=== PATIENT | male | born 1960 | race Caucasian/White ===

== ENCOUNTER 2018-08-24 13:00 | Outpatient (RCR) | payer MEDICAID | END 2018-08-24 13:30 | disposition home or self-care (01) | LOC: PT 13:00 | DX: M54.5 Low back pain (principal); G89.29 Other chronic pain; Z98.890 Other specified postprocedural states ==

== ENCOUNTER 2018-08-29 17:18 | Observation (INO) | payer MEDICAID ==
[~2018-08-29] VITALS: Ht 177.8 cm; Wt 107.1 kg
[2018-08-29 18:06] LABS: EOS # 0.3 (0.04-0.40); EOS % 4.2 % (0.0-4.0); HEMATOCRIT 47.8 % (42.0-52.0); HEMOGLOBIN 16.2 g/dL (13.5-18.0); LYMPH# 1.3 (1.50-4.00); MEAN CELL VOLUME 88 fl (78-100); MEAN CORPUSCULAR HEMOGLOBIN 30 pg (27-31); MEAN CORPUSCULAR HGB CONC 34 g/dL (33-37); MEAN PLATELET VOLUME 10.1 fl (7.4-10.4); MONO # 0.4 (0.20-0.80); NEU # 4.2 (1.40-6.50); PLATELET COUNT 189 K/mm3 (130-400); RED BLOOD COUNT 5.41 M/mm3 (4.20-5.60); RED CELL DISTRIBUTION WIDTH 13.3 % (11.5-14.5); WHITE BLOOD COUNT 6.2 K/mm3 (4.8-10.8)
[2018-08-29] MEDS ORDERED: PRINIVIL5 M1 PO (18:13)
[2018-08-29] MEDS ORDERED: ROPINIROLE HCL1 MG PO (18:13)
[2018-08-29] MEDS ORDERED: FENOFIBRATE145 MG PO (18:13)
[2018-08-29] MEDS ORDERED: CARBIDOPA/LEVOD1 TA2 PO (18:14)
[2018-08-29] MEDS ORDERED: ROSUVASTATIN CA10 MG PO (18:14)
[2018-08-29] MEDS ORDERED: CLOPIDOGREL75 M2 PO (18:14)
[2018-08-29] MEDS ORDERED: PANTOPRAZOLE SO40 MG PO (18:15)
[2018-08-29] MEDS ORDERED: FUROSEMIDE20 MG PO (18:15)
[2018-08-29] MEDS ORDERED: ASPIR LOW81 MG PO (18:15)
[2018-08-29] MEDS ORDERED: OMEGA-3-ACID ETH1 GM PO (18:16)
[2018-08-29 18:17] LABS: PARTIAL THROMBOPLASTIN TIME 23.7 SECONDS (21.0-32.0); PROTHROMBIN TIME 10.9 SECONDS (9.0-12.0)
[2018-08-29] MEDS ORDERED: QUETIAPINE FUMA25 M3 PO (18:17)
[2018-08-29] MEDS ORDERED: QUETIAPINE FUM200 M1 PO (18:18)
[2018-08-29] MEDS ORDERED: REMERON15 MG PO (18:18)
[2018-08-29 18:19] LABS: ALBUMIN 4.1 g/dL (3.5-5.0); CALCIUM 9.1 mg/dL (8.4-10.2); POTASSIUM 3.9 mmol/L (3.6-5.0); TOTAL BILIRUBIN 0.6 mg/dL (0.2-1.3); TOTAL PROTEIN 7.7 g/dL (6.3-8.2)
[2018-08-29] MEDS ORDERED: ISOSORBIDE30 MG PO (18:19)
[2018-08-29] MEDS ORDERED: METOPROLOL TAR100 M1 PO (18:19)
[2018-08-29] MEDS ORDERED: PERCOCET 325 MG1 TAB PO (18:20)
[2018-08-29 18:22] LABS: CKMB ISOENZYME 1.2 ng/mL (0.6-3.5)
[2018-08-29 18:32] LABS: TROPONIN-I < 0.03 ng/mL (0.00-0.06)
[2018-08-29 22:23] VITALS: BP 147/89
[2018-08-29 22:31] VITALS: BP 147/89
[2018-08-30 00:56] LABS: URINE APPEARANCE CLEAR; URINE COLOR YELLOW; URINE PROTEIN(semi-quant) NEGATIVE (NEGATIVE)
[2018-08-30 00:57] LABS: URINE BILIRUBIN NEGATIVE (NEGATIVE); URINE BLOOD NEGATIVE (NEGATIVE); URINE KETONE NEGATIVE (NEGATIVE); URINE LEUKOCYTE ESTERASE NEGATIVE (NEGATIVE); URINE NITRATE NEGATIVE (NEGATIVE); URINE UROBILINOGEN NORMAL (NORMAL); URINE WBC 0-1 /hpf (0-3)
[2018-08-30 02:50] VITALS: BP 134/68
[2018-08-30 05:26] LABS: URINE GLUCOSE 50 mg/dL mg/dL (NEGATIVE)
[2018-08-30 06:31] VITALS: BP 133/74
[2018-08-30 07:02] LABS: EOS # 0.2 (0.04-0.40); EOS % 4.7 % (0.0-4.0); HEMATOCRIT 45.4 % (42.0-52.0); HEMOGLOBIN 15.2 g/dL (13.5-18.0); LYMPH# 1.6 (1.50-4.00); MEAN CELL VOLUME 89 fl (78-100); MEAN CORPUSCULAR HEMOGLOBIN 30 pg (27-31); MEAN CORPUSCULAR HGB CONC 34 g/dL (33-37); MEAN PLATELET VOLUME 9.7 fl (7.4-10.4); MONO # 0.4 (0.20-0.80); NEU # 2.6 (1.40-6.50); PLATELET COUNT 171 K/mm3 (130-400); RED CELL DISTRIBUTION WIDTH 13.4 % (11.5-14.5); WHITE BLOOD COUNT 4.9 K/mm3 (4.8-10.8)
[2018-08-30 07:20] LABS: ALBUMIN 3.8 g/dL (3.5-5.0); POTASSIUM 3.8 mmol/L (3.6-5.0); TOTAL BILIRUBIN 0.7 mg/dL (0.2-1.3); TOTAL PROTEIN 7.3 g/dL (6.3-8.2)
[2018-08-30 09:05] LABS: D-DIMER 0.61 mg/L FEU (0.15-0.50)
[2018-08-30 11:24] VITALS: BP 116/70
[2018-08-30 14:17] VITALS: BP 124/74
== END 2018-08-30 14:46 | disposition home or self-care (01) ==
LOC: ED 17:18 → MED/SURG 20:43
PROVIDERS: Physician Assistant; ADMIT Nurse Practitioner Family
DX: R07.9 Chest pain, unspecified (principal); I25.118 Atherosclerotic heart disease of native coronary artery with other forms of angina pectoris; I10 Essential (primary) hypertension; Z95.5 Presence of coronary angioplasty implant and graft; I42.9 Cardiomyopathy, unspecified; Z86.73 Personal history of transient ischemic attack (TIA), and cerebral infarction without residual deficits; E78.5 Hyperlipidemia, unspecified; R73.03 Prediabetes; R73.9 Hyperglycemia, unspecified; G20 Parkinson's disease; G47.30 Sleep apnea, unspecified; Z95.1 Presence of aortocoronary bypass graft; Z95.820 Peripheral vascular angioplasty status with implants and grafts; Z87.19 Personal history of other diseases of the digestive system; Z91.5 Personal history of self-harm; G89.29 Other chronic pain; Z95.0 Presence of cardiac pacemaker; Z79.899 Other long term (current) drug therapy; Z79.82 Long term (current) use of aspirin; Z79.02 Long term (current) use of antithrombotics/antiplatelets; F17.210 Nicotine dependence, cigarettes, uncomplicated; Z98.1 Arthrodesis status
CPT/HCPCS: G0378; J2270; J7030; Q9967

== ENCOUNTER 2019-01-05 04:42 | Emergency (ER) | payer MEDICAID ==
[~2019-01-05 04:42] MED LIST: ASPIR LOW81 MG PO; CARBIDOPA/LEVOD1 TA2 PO; CLOPIDOGREL75 M2 PO; FENOFIBRATE145 MG PO; FUROSEMIDE20 MG PO; ISOSORBIDE30 MG PO; METOPROLOL TAR100 M1 PO; OMEGA-3-ACID ETH1 GM PO; PANTOPRAZOLE SO40 MG PO; PERCOCET 325 MG1 TAB PO; PRINIVIL5 M1 PO; QUETIAPINE FUM200 M1 PO; QUETIAPINE FUMA25 M3 PO; REMERON15 MG PO; ROPINIROLE HCL1 MG PO; ROSUVASTATIN CA10 MG PO
[2019-01-05 05:39] LABS: EOS # 0.4 (0.04-0.40); HEMATOCRIT 47.6 % (42.0-52.0); HEMOGLOBIN 15.6 g/dL (13.5-18.0); LYMPH# 1.4 (1.50-4.00); MEAN CELL VOLUME 89 fl (78-100); MEAN CORPUSCULAR HEMOGLOBIN 29 pg (27-31); MEAN CORPUSCULAR HGB CONC 33 g/dL (33-37); MEAN PLATELET VOLUME 10.1 fl (7.4-10.4); MONO # 0.5 (0.20-0.80); NEU # 3.7 (1.40-6.50); PLATELET COUNT 207 K/mm3 (130-400); RED BLOOD COUNT 5.38 M/mm3 (4.20-5.60); RED CELL DISTRIBUTION WIDTH 13.5 % (11.5-14.5); WHITE BLOOD COUNT 6.1 K/mm3 (4.8-10.8)
[2019-01-05 05:40] LABS: ALBUMIN 4.5 g/dL (3.5-5.0); CALCIUM 10.1 mg/dL (8.4-10.2); POTASSIUM 3.8 mmol/L (3.6-5.0); TOTAL BILIRUBIN 0.6 mg/dL (0.2-1.3); TOTAL PROTEIN 8.4 g/dL (6.3-8.2)
[2019-01-05 05:45] LABS: EOS % 6.4 % (0.0-4.0)
[2019-01-05 05:48] LABS: TROPONIN-I < 0.03 ng/mL (0.00-0.06)
[2019-01-05] MEDS ORDERED: LISINOPRIL40 MG PO (05:48)
[2019-01-05] MEDS ORDERED: METOPROLOL SUC200 M1 PO (05:48)
[2019-01-05] MEDS ORDERED: METFORMIN HYD1000 MG PO (05:50)
[2019-01-05] MEDS ORDERED: NITROGLYCERIN0.4 M1 SL (05:50)
[2019-01-05 05:51] LABS: CKMB ISOENZYME 1.7 ng/mL (0.6-3.5)
[2019-01-05] MEDS ORDERED: RANOLAZINE ER500 MG PO (05:51)
[2019-01-05 06:36] LABS: PARTIAL THROMBOPLASTIN TIME 25.2 SECONDS (21.0-32.0)
[2019-01-05 06:37] LABS: D-DIMER 0.6 mg/L FEU (0.15-0.50)
[2019-01-05 08:46] LABS: TROPONIN-I < 0.03 ng/mL (0.00-0.06)
[2019-01-05] MEDS ORDERED: MS CONTIN15 MG PO (11:58)
[2019-01-05 12:20] VITALS: BP 148/87
== END 2019-01-05 12:20 | disposition home or self-care (01) ==
LOC: ED 04:42
PROVIDERS: Nurse Practitioner Family
DX: R07.9 Chest pain, unspecified (principal); R06.02 Shortness of breath; I10 Essential (primary) hypertension; E11.9 Type 2 diabetes mellitus without complications; E78.5 Hyperlipidemia, unspecified; F32.9 Major depressive disorder, single episode, unspecified; G20 Parkinson's disease; G47.33 Obstructive sleep apnea (adult) (pediatric); F17.210 Nicotine dependence, cigarettes, uncomplicated; G40.909 Epilepsy, unspecified, not intractable, without status epilepticus; Z79.82 Long term (current) use of aspirin; Z79.02 Long term (current) use of antithrombotics/antiplatelets; Z79.84 Long term (current) use of oral hypoglycemic drugs; Z95.0 Presence of cardiac pacemaker; Z90.49 Acquired absence of other specified parts of digestive tract
CPT/HCPCS: J2270; J2405; J7030

== ENCOUNTER → 2019-01-19 | Outpatient (CLI) | payer MEDICAID ==
[2019-01-05 12:20] VITALS: BP 148/87
[~2019-01-19] MED LIST changes: +LISINOPRIL40 MG PO; +METFORMIN HYD1000 MG PO; +METOPROLOL SUC200 M1 PO; +MS CONTIN15 MG PO; +NITROGLYCERIN0.4 M1 SL; +RANOLAZINE ER500 MG PO
[2019-01-19 14:21] LABS: ALBUMIN 4.8 g/dL (3.5-5.0); CALCIUM 10.2 mg/dL (8.4-10.2); POTASSIUM 3.9 mmol/L (3.6-5.0); TOTAL BILIRUBIN 0.5 mg/dL (0.2-1.3); TOTAL PROTEIN 8.8 g/dL (6.3-8.2)
[2019-01-19 14:46] LABS: D-DIMER 0.48 mg/L FEU (0.15-0.50)
== END ==
LOC: LAB 13:52
PROVIDERS: Family Medicine
DX: R77.9 Abnormality of plasma protein, unspecified (principal); R79.89 Other specified abnormal findings of blood chemistry

== ENCOUNTER 2019-01-27 17:58 | Emergency (ER) | payer MEDICAID ==
[~2019-01-27] VITALS: Wt 99.5 kg
[2019-01-27] MEDS ORDERED: AMOXICILLIN 50500 MG PO (18:08)
[2019-01-27] MEDS ORDERED: ACETAMINOPHEN-H1 TA2 PO (18:12)
[2019-01-27 18:44] LABS: EOS # 0.5 (0.04-0.40); HEMATOCRIT 42.6 % (42.0-52.0); HEMOGLOBIN 14.4 g/dL (13.5-18.0); LYMPH# 1.8 (1.50-4.00); MEAN CELL VOLUME 87 fl (78-100); MEAN CORPUSCULAR HEMOGLOBIN 30 pg (27-31); MEAN CORPUSCULAR HGB CONC 34 g/dL (33-37); MONO # 0.5 (0.20-0.80); NEU # 4.1 (1.40-6.50); PLATELET COUNT 195 K/mm3 (130-400); RED BLOOD COUNT 4.88 M/mm3 (4.20-5.60); WHITE BLOOD COUNT 6.8 K/mm3 (4.8-10.8)
[2019-01-27 18:55] LABS: ALBUMIN 4.4 g/dL (3.5-5.0); CALCIUM 9.6 mg/dL (8.4-10.2); TOTAL BILIRUBIN 0.4 mg/dL (0.2-1.3); TOTAL PROTEIN 8.2 g/dL (6.3-8.2)
[2019-01-27 18:57] LABS: EOS % 7.2 % (0.0-4.0)
[2019-01-27 19:08] LABS: POTASSIUM 2.9 mmol/L (3.6-5.0)
[2019-01-27 19:53] LABS: PH-URINE 5.5 (5.0 - 8.0); URINE APPEARANCE CLEAR; URINE BILIRUBIN NEGATIVE (NEGATIVE); URINE BLOOD NEGATIVE (NEGATIVE); URINE COLOR YELLOW; URINE GLUCOSE 50 mg/dL mg/dL (NEGATIVE); URINE KETONE NEGATIVE (NEGATIVE); URINE LEUKOCYTE ESTERASE NEGATIVE (NEGATIVE); URINE NITRATE NEGATIVE (NEGATIVE); URINE PROTEIN(semi-quant) NEGATIVE (NEGATIVE); URINE UROBILINOGEN NORMAL (NORMAL); URINE WBC 0-1 /hpf (0-3)
[2019-01-27] MEDS ORDERED: PERCOCET 325 MG1 TA2 PO (21:47)
[2019-01-27] MEDS ORDERED: POTASSIUM CHLO20 ME3 PO (21:47)
[2019-01-27 21:56] VITALS: BP 158/92
== END 2019-01-27 21:58 | disposition home or self-care (01) ==
LOC: ED 17:58
PROVIDERS: Family Medicine
DX: K92.2 Gastrointestinal hemorrhage, unspecified (principal); R10.9 Unspecified abdominal pain; N13.9 Obstructive and reflux uropathy, unspecified; G89.29 Other chronic pain; I25.10 Atherosclerotic heart disease of native coronary artery without angina pectoris; I10 Essential (primary) hypertension; E78.5 Hyperlipidemia, unspecified; G20 Parkinson's disease; F17.210 Nicotine dependence, cigarettes, uncomplicated; G40.909 Epilepsy, unspecified, not intractable, without status epilepticus; Z79.82 Long term (current) use of aspirin; Z79.02 Long term (current) use of antithrombotics/antiplatelets; Z91.19 Patient's noncompliance with other medical treatment and regimen; Z86.73 Personal history of transient ischemic attack (TIA), and cerebral infarction without residual deficits; Z95.0 Presence of cardiac pacemaker
CPT/HCPCS: J0595; J3480; J7030; Q9967

== ENCOUNTER → 2019-02-05 | Outpatient (CLI) | payer MEDICAID ==
[2019-01-27 21:56] VITALS: BP 158/92
[~2019-02-05] MED LIST changes: +ACETAMINOPHEN-H1 TA2 PO; +AMOXICILLIN 50500 MG PO; +PERCOCET 325 MG1 TA2 PO; +POTASSIUM CHLO20 ME3 PO
[2019-02-05 10:31] LABS: EOS # 0.4 (0.04-0.40); HEMATOCRIT 50.3 % (42.0-52.0); HEMOGLOBIN 16.6 g/dL (13.5-18.0); LYMPH# 1.7 (1.50-4.00); MEAN CELL VOLUME 87 fl (78-100); MEAN CORPUSCULAR HEMOGLOBIN 29 pg (27-31); MEAN CORPUSCULAR HGB CONC 33 g/dL (33-37); MEAN PLATELET VOLUME 9.6 fl (7.4-10.4); MONO # 0.4 (0.20-0.80); NEU # 4.5 (1.40-6.50); PLATELET COUNT 198 K/mm3 (130-400); RED BLOOD COUNT 5.77 M/mm3 (4.20-5.60); RED CELL DISTRIBUTION WIDTH 13.4 % (11.5-14.5); WHITE BLOOD COUNT 7.2 K/mm3 (4.8-10.8)
[2019-02-05 10:41] LABS: EOS % 6.1 % (0.0-4.0)
[2019-02-05 10:51] LABS: ALBUMIN 4.9 g/dL (3.5-5.0); CALCIUM 10.5 mg/dL (8.4-10.2); TOTAL BILIRUBIN 0.7 mg/dL (0.2-1.3); TOTAL PROTEIN 9.3 g/dL (6.3-8.2)
[2019-02-05 11:04] LABS: PH-URINE 6.5 (5.0 - 8.0); URINE APPEARANCE CLEAR; URINE BILIRUBIN NEGATIVE (NEGATIVE); URINE BLOOD NEGATIVE (NEGATIVE); URINE COLOR YELLOW; URINE GLUCOSE NEGATIVE (NEGATIVE); URINE KETONE NEGATIVE (NEGATIVE); URINE LEUKOCYTE ESTERASE NEGATIVE (NEGATIVE); URINE NITRATE NEGATIVE (NEGATIVE); URINE PROTEIN(semi-quant) TRACE mg/dL (NEGATIVE); URINE UROBILINOGEN NORMAL (NORMAL); URINE WBC 0-1 /hpf (0-3)
[2019-02-05 11:46] LABS: ERYTHROCYTE SEDIMENTATION RATE 8 mm/hr (0-20)
[2019-02-05 22:28] LABS: TESTOSTERONE 631 ng/dL (221-716)
== END ==
LOC: LAB 09:38
PROVIDERS: Internal Medicine
DX: Z12.5 Encounter for screening for malignant neoplasm of prostate (principal); Z12.11 Encounter for screening for malignant neoplasm of colon; E11.9 Type 2 diabetes mellitus without complications; I25.10 Atherosclerotic heart disease of native coronary artery without angina pectoris

== ENCOUNTER → 2019-04-16 | Outpatient (CLI) | payer MEDICAID ==
[2019-04-16 11:54] LABS: BASO # 0.1 (0.02-0.10); EOS # 0.5 (0.04-0.40); HEMATOCRIT 46.4 % (42.0-52.0); HEMOGLOBIN 15.5 g/dL (13.5-18.0); LYMPH# 1.9 (1.50-4.00); MEAN CELL VOLUME 86 fl (78-100); MEAN CORPUSCULAR HEMOGLOBIN 29 pg (27-31); MEAN CORPUSCULAR HGB CONC 33 g/dL (33-37); MEAN PLATELET VOLUME 9.6 fl (7.4-10.4); MONO # 0.7 (0.20-0.80); NEU # 4.9 (1.40-6.50); PLATELET COUNT 249 K/mm3 (130-400); RED BLOOD COUNT 5.37 M/mm3 (4.20-5.60); RED CELL DISTRIBUTION WIDTH 14.2 % (11.5-14.5); WHITE BLOOD COUNT 8.1 K/mm3 (4.8-10.8)
[2019-04-16 12:00] LABS: ALBUMIN 4.3 g/dL (3.5-5.0); POTASSIUM 3.4 mmol/L (3.5-5.1)
[2019-04-16 12:03] LABS: TOTAL PROTEIN 8.4 g/dL (6.4-8.3)
[2019-04-16 12:04] LABS: TOTAL BILIRUBIN 0.6 mg/dL (0.2-1.2)
[2019-04-16 12:20] LABS: EOS % 5.9 % (0.0-4.0)
[2019-04-16 12:40] LABS: URINE APPEARANCE CLEAR; URINE BILIRUBIN NEGATIVE (NEGATIVE); URINE BLOOD NEGATIVE (NEGATIVE); URINE COLOR YELLOW; URINE GLUCOSE NEGATIVE (NEGATIVE); URINE KETONE NEGATIVE (NEGATIVE); URINE LEUKOCYTE ESTERASE NEGATIVE (NEGATIVE); URINE NITRATE NEGATIVE (NEGATIVE); URINE PROTEIN(semi-quant) TRACE mg/dL (NEGATIVE); URINE UROBILINOGEN NORMAL (NORMAL); URINE WBC 0-1 /hpf (0-3)
== END ==
LOC: LAB 11:33
PROVIDERS: Internal Medicine
DX: R50.9 Fever, unspecified (principal)

== ENCOUNTER 2019-04-30 11:10 | Observation (INO) | payer MEDICAID ==
[~2019-04-30] VITALS: Ht 177.8 cm; Wt 98.5 kg
[2019-04-30] MEDS ORDERED: AMLODIPINE BESYL5 MG PO (11:36)
[2019-04-30] MEDS ORDERED: ACETAMINOPHEN-O1 TAB PO (11:37)
[2019-04-30] MEDS ORDERED: XARELTO20 MG PO (11:37)
[2019-04-30] MEDS ORDERED: LORAZEPAM0.5 M1 PO (11:38)
[2019-04-30] MEDS ORDERED: HYDROXYZINE HCL25 M1 PO (11:38)
[2019-04-30] MEDS ORDERED: DULOXETINE20 MG PO (11:39)
[2019-04-30 11:47] LABS: BASO # 0.1 (0.02-0.10); EOS # 0.6 (0.04-0.40); HEMATOCRIT 43.3 % (42.0-52.0); HEMOGLOBIN 14.3 g/dL (13.5-18.0); LYMPH# 1.7 (1.50-4.00); MEAN CELL VOLUME 88 fl (78-100); MEAN CORPUSCULAR HEMOGLOBIN 29 pg (27-31); MEAN CORPUSCULAR HGB CONC 33 g/dL (33-37); MEAN PLATELET VOLUME 8.8 fl (7.4-10.4); MONO # 0.6 (0.20-0.80); NEU # 5.3 (1.40-6.50); PLATELET COUNT 249 K/mm3 (130-400); RED BLOOD COUNT 4.92 M/mm3 (4.20-5.60); RED CELL DISTRIBUTION WIDTH 14.5 % (11.5-14.5); WHITE BLOOD COUNT 8.2 K/mm3 (4.8-10.8)
[2019-04-30 12:08] LABS: POTASSIUM 3.7 mmol/L (3.5-5.1); SODIUM 139 mmol/L (136-145)
[2019-04-30 12:09] LABS: CALCIUM 9.4 mg/dL (8.3-10.5); PROTHROMBIN TIME 10.6 SECONDS (9.0-12.0)
[2019-04-30 12:11] LABS: CARBON DIOXIDE 24 mmol/L (22-29)
[2019-04-30 12:12] LABS: TOTAL BILIRUBIN 0.2 mg/dL (0.2-1.2)
[2019-04-30 12:14] LABS: EOS % 7.3 % (0.0-4.0)
[2019-04-30 12:16] LABS: AST-SGOT 20 U/L (5-34)
[2019-04-30 12:31] LABS: TROPONIN-I < 0.03 ng/mL (<0.030)
[2019-04-30 12:38] LABS: ALBUMIN 3.9 g/dL (3.5-5.0)
[2019-04-30 12:40] LABS: GLUCOSE 182 mg/dL (75-110)
[2019-04-30 12:47] LABS: ALT/SGPT 12 U/L (0-55)
[2019-04-30 14:07] VITALS: BP 134/73
[2019-04-30 15:00] VITALS: BP 161/94
[2019-04-30] MEDS ORDERED: TOPROL XL100 MG PO (16:05)
[2019-04-30 18:29] VITALS: BP 163/86
[2019-04-30 22:47] VITALS: BP 146/81
[2019-05-01 03:21] VITALS: BP 129/72
[2019-05-01 06:28] VITALS: BP 138/81
[2019-05-01] MEDS ORDERED: ACETAMINOPHEN-O1 TAB PO (09:45)
[2019-05-01] MEDS ORDERED: LISINOPRIL20 MG PO (09:45)
[2019-05-01 10:11] VITALS: BP 130/70
== END 2019-05-01 10:11 | disposition home or self-care (01) ==
LOC: ED 11:10 → MED/SURG 13:29
PROVIDERS: ADMIT Nurse Practitioner Primary Care
DX: R07.9 Chest pain, unspecified (principal); I25.10 Atherosclerotic heart disease of native coronary artery without angina pectoris; I25.2 Old myocardial infarction; E11.9 Type 2 diabetes mellitus without complications; I10 Essential (primary) hypertension; E78.5 Hyperlipidemia, unspecified; F32.9 Major depressive disorder, single episode, unspecified; G20 Parkinson's disease; Z86.73 Personal history of transient ischemic attack (TIA), and cerebral infarction without residual deficits; Z79.82 Long term (current) use of aspirin; Z79.84 Long term (current) use of oral hypoglycemic drugs; Z79.01 Long term (current) use of anticoagulants; F17.210 Nicotine dependence, cigarettes, uncomplicated; Z88.6 Allergy status to analgesic agent
CPT/HCPCS: G0378; J2270

== ENCOUNTER 2019-05-03 09:34 | Emergency (ER) | payer MEDICAID ==
[~2019-05-03] VITALS: Ht 177.8 cm; Wt 102.2 kg
[~2019-05-03 09:34] MED LIST changes: +ACETAMINOPHEN-O1 TAB PO; +AMLODIPINE BESYL5 MG PO; +DULOXETINE20 MG PO; +HYDROXYZINE HCL25 M1 PO; +LISINOPRIL20 MG PO; +LORAZEPAM0.5 M1 PO; +TOPROL XL100 MG PO; +XARELTO20 MG PO
[2019-05-03 10:22] LABS: HEMATOCRIT 40.2 % (42.0-52.0); MEAN CELL VOLUME 90 fl (78-100); MEAN CORPUSCULAR HEMOGLOBIN 29 pg (27-31); MEAN CORPUSCULAR HGB CONC 32 g/dL (33-37); MEAN PLATELET VOLUME 9.3 fl (7.4-10.4); PLATELET COUNT 194 K/mm3 (130-400); RED BLOOD COUNT 4.49 M/mm3 (4.20-5.60); RED CELL DISTRIBUTION WIDTH 14.3 % (11.5-14.5); WHITE BLOOD COUNT 8.9 K/mm3 (4.8-10.8)
[2019-05-03 10:24] LABS: ALBUMIN 3.6 g/dL (3.5-5.0); POTASSIUM 3.5 mmol/L (3.5-5.1); SODIUM 137 mmol/L (136-145)
[2019-05-03 10:25] LABS: CALCIUM 8.9 mg/dL (8.3-10.5)
[2019-05-03 10:27] LABS: GLUCOSE 126 mg/dL (75-110); PROTHROMBIN TIME 10.8 SECONDS (9.0-12.0); TOTAL PROTEIN 7.3 g/dL (6.4-8.3)
[2019-05-03 10:28] LABS: CARBON DIOXIDE 22 mmol/L (22-29); TOTAL BILIRUBIN 0.5 mg/dL (0.2-1.2)
[2019-05-03 10:32] LABS: AST-SGOT 16 U/L (5-34)
[2019-05-03 10:34] LABS: ALT/SGPT 15 U/L (0-55)
[2019-05-03 10:44] LABS: LYMPHOCYTE 8 % (20-51); MONOCYTE 6 % (3-10); NEUTROPHILS 80 % (42-75)
[2019-05-03 10:48] LABS: TROPONIN-I < 0.03 ng/mL (<0.030)
[2019-05-03 11:43] LABS: URINE APPEARANCE CLEAR; URINE BILIRUBIN NEGATIVE (NEGATIVE); URINE BLOOD NEGATIVE (NEGATIVE); URINE COLOR YELLOW; URINE GLUCOSE NEGATIVE (NEGATIVE); URINE KETONE NEGATIVE (NEGATIVE); URINE LEUKOCYTE ESTERASE NEGATIVE (NEGATIVE); URINE NITRATE NEGATIVE (NEGATIVE); URINE PROTEIN(semi-quant) NEGATIVE (NEGATIVE); URINE UROBILINOGEN NORMAL (NORMAL); URINE WBC 0-1 /hpf (0-3)
[2019-05-03 13:38] VITALS: BP 138/88
== END 2019-05-03 12:57 | disposition home or self-care (01) ==
LOC: ED 09:34
PROVIDERS: Nurse Practitioner Primary Care
DX: I50.9 Heart failure, unspecified (principal); I11.0 Hypertensive heart disease with heart failure; I25.2 Old myocardial infarction; I25.10 Atherosclerotic heart disease of native coronary artery without angina pectoris; E11.9 Type 2 diabetes mellitus without complications; F32.9 Major depressive disorder, single episode, unspecified; G20 Parkinson's disease; F17.210 Nicotine dependence, cigarettes, uncomplicated; E78.5 Hyperlipidemia, unspecified; Z79.84 Long term (current) use of oral hypoglycemic drugs; Z86.73 Personal history of transient ischemic attack (TIA), and cerebral infarction without residual deficits; Z95.9 Presence of cardiac and vascular implant and graft, unspecified; Z90.49 Acquired absence of other specified parts of digestive tract; Z98.52 Vasectomy status; Z95.2 Presence of prosthetic heart valve; Z79.01 Long term (current) use of anticoagulants; Z88.6 Allergy status to analgesic agent
CPT/HCPCS: J1940

== ENCOUNTER 2019-05-04 22:38 | Emergency (ER) | payer MEDICAID ==
[~2019-05-04] VITALS: Wt 97.2 kg
[2019-05-05 00:19] LABS: EOS # 0.3 (0.04-0.40); EOS % 3.5 % (0.0-4.0); HEMATOCRIT 46.1 % (42.0-52.0); HEMOGLOBIN 15.4 g/dL (13.5-18.0); LYMPH# 1.8 (1.50-4.00); MEAN CELL VOLUME 87 fl (78-100); MEAN CORPUSCULAR HEMOGLOBIN 29 pg (27-31); MEAN CORPUSCULAR HGB CONC 33 g/dL (33-37); MEAN PLATELET VOLUME 9.4 fl (7.4-10.4); MONO # 0.6 (0.20-0.80); NEU # 5.6 (1.40-6.50); PLATELET COUNT 277 K/mm3 (130-400); RED BLOOD COUNT 5.31 M/mm3 (4.20-5.60); RED CELL DISTRIBUTION WIDTH 14.5 % (11.5-14.5); WHITE BLOOD COUNT 8.4 K/mm3 (4.8-10.8)
[2019-05-05 00:20] LABS: CALCIUM 9.9 mg/dL (8.3-10.5)
[2019-05-05 04:52] LABS: URINE APPEARANCE HAZY; URINE BILIRUBIN NEGATIVE (NEGATIVE); URINE BLOOD NEGATIVE (NEGATIVE); URINE COLOR YELLOW; URINE GLUCOSE NEGATIVE (NEGATIVE); URINE KETONE NEGATIVE (NEGATIVE); URINE NITRATE NEGATIVE (NEGATIVE); URINE PROTEIN(semi-quant) 1+ mg/dL (NEGATIVE); URINE UROBILINOGEN NORMAL (NORMAL)
[2019-05-05 04:53] LABS: URINE LEUKOCYTE ESTERASE NEGATIVE (NEGATIVE)
[2019-05-05 16:57] VITALS: BP 144/90
== END 2019-05-05 17:30 ==
LOC: ED 22:38
PROVIDERS: Family Medicine
DX: F32.9 Major depressive disorder, single episode, unspecified (principal); F10.10 Alcohol abuse, uncomplicated; I25.10 Atherosclerotic heart disease of native coronary artery without angina pectoris; I10 Essential (primary) hypertension; E78.5 Hyperlipidemia, unspecified; E11.9 Type 2 diabetes mellitus without complications; G20 Parkinson's disease; F17.210 Nicotine dependence, cigarettes, uncomplicated; Z86.73 Personal history of transient ischemic attack (TIA), and cerebral infarction without residual deficits; Z90.49 Acquired absence of other specified parts of digestive tract; Z95.0 Presence of cardiac pacemaker; Z95.2 Presence of prosthetic heart valve; Z79.01 Long term (current) use of anticoagulants

== ENCOUNTER 2019-06-30 18:40 | Emergency (ER) | payer MEDICAID ==
[~2019-06-30] VITALS: Ht 177.8 cm; Wt 100.0 kg
[2019-06-30 19:14] LABS: BASO # 0.1 (0.02-0.10); EOS # 0.5 (0.04-0.40); HEMATOCRIT 46.3 % (42.0-52.0); HEMOGLOBIN 15.3 g/dL (13.5-18.0); LYMPH# 1.8 (1.50-4.00); MEAN CELL VOLUME 86 fl (78-100); MEAN CORPUSCULAR HEMOGLOBIN 28 pg (27-31); MEAN CORPUSCULAR HGB CONC 33 g/dL (33-37); MEAN PLATELET VOLUME 9.7 fl (7.4-10.4); MONO # 0.6 (0.20-0.80); NEU # 3.4 (1.40-6.50); PLATELET COUNT 153 K/mm3 (130-400); RED BLOOD COUNT 5.38 M/mm3 (4.20-5.60); RED CELL DISTRIBUTION WIDTH 13.3 % (11.5-14.5); WHITE BLOOD COUNT 6.4 K/mm3 (4.8-10.8)
[2019-06-30] MEDS ORDERED: LORAZEPAM1 M1 PO (19:20)
[2019-06-30] MEDS ORDERED: LEADER MELATONIN5 MG PO (19:21)
[2019-06-30 19:30] LABS: ALBUMIN 3.7 g/dL (3.5-5.0); POTASSIUM 3.7 mmol/L (3.5-5.1)
[2019-06-30 19:31] LABS: EOS % 7.4 % (0.0-4.0)
[2019-06-30 19:32] LABS: TOTAL PROTEIN 7.5 g/dL (6.4-8.3)
[2019-06-30 19:34] LABS: TOTAL BILIRUBIN 0.3 mg/dL (0.2-1.2)
[2019-06-30 19:41] LABS: URINE APPEARANCE CLEAR; URINE BILIRUBIN NEGATIVE (NEGATIVE); URINE COLOR YELLOW; URINE GLUCOSE NEGATIVE (NEGATIVE); URINE KETONE NEGATIVE (NEGATIVE); URINE NITRATE NEGATIVE (NEGATIVE); URINE PROTEIN(semi-quant) TRACE mg/dL (NEGATIVE); URINE UROBILINOGEN NORMAL (NORMAL)
[2019-06-30 19:42] LABS: URINE BLOOD NEGATIVE (NEGATIVE); URINE LEUKOCYTE ESTERASE NEGATIVE (NEGATIVE); URINE WBC 0-1 /hpf (0-3)
[2019-06-30] MEDS ORDERED: COUMADIN 5MG5 MG/TAB PO (23:09)
[2019-06-30 23:38] VITALS: BP 168/103
== END 2019-06-30 23:30 | disposition home or self-care (01) ==
LOC: ED 18:40
PROVIDERS: Family Medicine
DX: R07.89 Other chest pain (principal); I25.10 Atherosclerotic heart disease of native coronary artery without angina pectoris; E11.9 Type 2 diabetes mellitus without complications; I11.0 Hypertensive heart disease with heart failure; I50.9 Heart failure, unspecified; G20 Parkinson's disease; Z86.69 Personal history of other diseases of the nervous system and sense organs; Z90.49 Acquired absence of other specified parts of digestive tract
CPT/HCPCS: J2270; J2405

== ENCOUNTER → 2019-07-03 | Outpatient (CLI) | payer MEDICAID ==
[2019-06-30 23:38] VITALS: BP 168/103
[~2019-07-03] MED LIST changes: +COUMADIN 5MG5 MG/TAB PO; +LEADER MELATONIN5 MG PO; +LORAZEPAM1 M1 PO
[2019-07-03 11:12] LABS: EOS # 0.5 (0.04-0.40); HEMATOCRIT 50.1 % (42.0-52.0); HEMOGLOBIN 16.4 g/dL (13.5-18.0); LYMPH# 1.5 (1.50-4.00); MEAN CELL VOLUME 86 fl (78-100); MEAN CORPUSCULAR HEMOGLOBIN 28 pg (27-31); MEAN CORPUSCULAR HGB CONC 33 g/dL (33-37); MONO # 0.6 (0.20-0.80); NEU # 3.5 (1.40-6.50); PLATELET COUNT 166 K/mm3 (130-400); RED BLOOD COUNT 5.85 M/mm3 (4.20-5.60); RED CELL DISTRIBUTION WIDTH 13.7 % (11.5-14.5); WHITE BLOOD COUNT 6.1 K/mm3 (4.8-10.8)
[2019-07-03 11:13] LABS: EOS % 7.5 % (0.0-4.0)
[2019-07-03 11:14] LABS: POTASSIUM 3.8 mmol/L (3.5-5.1)
[2019-07-03 11:15] LABS: CALCIUM 9.5 mg/dL (8.3-10.5)
[2019-07-03 11:17] LABS: TOTAL PROTEIN 8.3 g/dL (6.4-8.3)
[2019-07-03 11:18] LABS: TOTAL BILIRUBIN 0.4 mg/dL (0.2-1.2)
== END ==
LOC: LAB 10:52
PROVIDERS: Internal Medicine
DX: E11.9 Type 2 diabetes mellitus without complications (principal); I25.10 Atherosclerotic heart disease of native coronary artery without angina pectoris

== ENCOUNTER → 2019-07-10 | Outpatient (CLI) | payer MEDICAID ==
[2019-06-30 23:38] VITALS: BP 168/103
== END ==
LOC: LAB 09:56
DX: K92.1 Melena (principal); R13.10 Dysphagia, unspecified; R10.9 Unspecified abdominal pain

== ENCOUNTER → 2019-07-24 | Outpatient (CLI) | payer MEDICAID ==
[2019-06-30 23:38] VITALS: BP 168/103
[2019-07-24 09:20] LABS: BASO # 0.1 (0.02-0.10); EOS # 0.5 (0.04-0.40); HEMATOCRIT 52.2 % (42.0-52.0); HEMOGLOBIN 16.9 g/dL (13.5-18.0); LYMPH# 2.1 (1.50-4.00); MEAN CELL VOLUME 85 fl (78-100); MEAN CORPUSCULAR HEMOGLOBIN 28 pg (27-31); MEAN CORPUSCULAR HGB CONC 32 g/dL (33-37); MEAN PLATELET VOLUME 10.2 fl (7.4-10.4); MONO # 0.7 (0.20-0.80); NEU # 5.3 (1.40-6.50); PLATELET COUNT 234 K/mm3 (130-400); RED BLOOD COUNT 6.12 M/mm3 (4.20-5.60); RED CELL DISTRIBUTION WIDTH 13.8 % (11.5-14.5); WHITE BLOOD COUNT 8.8 K/mm3 (4.8-10.8)
[2019-07-24 09:27] LABS: ALBUMIN 4.2 g/dL (3.5-5.0); POTASSIUM 3.9 mmol/L (3.5-5.1)
[2019-07-24 09:28] LABS: CALCIUM 9.8 mg/dL (8.3-10.5)
[2019-07-24 09:30] LABS: TOTAL PROTEIN 9.2 g/dL (6.4-8.3)
[2019-07-24 09:31] LABS: TOTAL BILIRUBIN 0.5 mg/dL (0.2-1.2)
[2019-07-24 10:06] LABS: EOS % 5.5 % (0.0-4.0)
[2019-07-24 12:09] LABS: ERYTHROCYTE SEDIMENTATION RATE 20 mm/hr (0-20)
== END ==
LOC: LAB 09:05
PROVIDERS: Internal Medicine
DX: E11.9 Type 2 diabetes mellitus without complications (principal); I25.10 Atherosclerotic heart disease of native coronary artery without angina pectoris

== ENCOUNTER → 2019-07-26 | Day surgery (SDC) | payer MEDICAID ==
[2019-06-30 23:38] VITALS: BP 168/103
== END ==
LOC: MSO 07:35
DX: D12.3 Benign neoplasm of transverse colon (principal); K57.92 Diverticulitis of intestine, part unspecified, without perforation or abscess without bleeding; K92.1 Melena; K56.699 Other intestinal obstruction unspecified as to partial versus complete obstruction; I25.10 Atherosclerotic heart disease of native coronary artery without angina pectoris; K21.0 Gastro-esophageal reflux disease with esophagitis; I10 Essential (primary) hypertension; I25.2 Old myocardial infarction; G47.33 Obstructive sleep apnea (adult) (pediatric); F32.9 Major depressive disorder, single episode, unspecified; F41.9 Anxiety disorder, unspecified; I48.91 Unspecified atrial fibrillation; G89.29 Other chronic pain; E11.9 Type 2 diabetes mellitus without complications; Z86.73 Personal history of transient ischemic attack (TIA), and cerebral infarction without residual deficits; Z90.49 Acquired absence of other specified parts of digestive tract; Z98.52 Vasectomy status; Z95.0 Presence of cardiac pacemaker; Z79.82 Long term (current) use of aspirin; Z79.84 Long term (current) use of oral hypoglycemic drugs
CPT/HCPCS: 00813; J2704; J3010; J7030

== ENCOUNTER → 2019-08-07 | Outpatient (CLI) | payer MEDICAID ==
[2019-08-07 10:26] LABS: BASO # 0.1 (0.02-0.10); EOS # 0.4 (0.04-0.40); LYMPH# 1.8 (1.50-4.00); MEAN CELL VOLUME 85 fl (78-100); MEAN CORPUSCULAR HEMOGLOBIN 28 pg (27-31); MEAN CORPUSCULAR HGB CONC 33 g/dL (33-37); MEAN PLATELET VOLUME 10.1 fl (7.4-10.4); MONO # 0.7 (0.20-0.80); NEU # 4.5 (1.40-6.50); PLATELET COUNT 216 K/mm3 (130-400); RED BLOOD COUNT 6.01 M/mm3 (4.20-5.60); RED CELL DISTRIBUTION WIDTH 13.5 % (11.5-14.5); WHITE BLOOD COUNT 7.4 K/mm3 (4.8-10.8)
[2019-08-07 10:33] LABS: EOS % 5.8 % (0.0-4.0)
[2019-08-07 10:37] LABS: ALBUMIN 4.2 g/dL (3.5-5.0)
[2019-08-07 10:38] LABS: SODIUM 139 mmol/L (136-145)
[2019-08-07 10:39] LABS: CALCIUM 9.7 mg/dL (8.3-10.5)
[2019-08-07 10:40] LABS: GLUCOSE 156 mg/dL (75-110); TOTAL PROTEIN 8.8 g/dL (6.4-8.3)
[2019-08-07 10:41] LABS: CARBON DIOXIDE 22 mmol/L (22-29)
[2019-08-07 10:42] LABS: TOTAL BILIRUBIN 0.5 mg/dL (0.2-1.2)
[2019-08-07 10:45] LABS: AST-SGOT 41 U/L (5-34)
[2019-08-07 10:46] LABS: MAGNESIUM 1.62 mg/dL (1.60-2.60)
[2019-08-07 10:47] LABS: ALT/SGPT 46 U/L (0-55)
[2019-08-07 11:58] LABS: ERYTHROCYTE SEDIMENTATION RATE 5 mm/hr (0-20)
== END ==
LOC: LAB 10:11
PROVIDERS: Internal Medicine
DX: K52.9 Noninfective gastroenteritis and colitis, unspecified (principal); E11.9 Type 2 diabetes mellitus without complications; I10 Essential (primary) hypertension

== ENCOUNTER 2019-08-24 16:47 | Emergency (ER) | payer MEDICAID ==
[~2019-08-24] VITALS: Ht 177.8 cm; Wt 96.8 kg
[2019-08-24 17:48] LABS: EOS # 0.5 (0.04-0.40); HEMATOCRIT 42.7 % (42.0-52.0); LYMPH# 2.2 (1.50-4.00); MEAN CELL VOLUME 86 fl (78-100); MEAN CORPUSCULAR HEMOGLOBIN 28 pg (27-31); MEAN CORPUSCULAR HGB CONC 33 g/dL (33-37); MEAN PLATELET VOLUME 9.3 fl (7.4-10.4); MONO # 0.8 (0.20-0.80); NEU # 5.3 (1.40-6.50); PLATELET COUNT 304 K/mm3 (130-400); RED BLOOD COUNT 4.97 M/mm3 (4.20-5.60); RED CELL DISTRIBUTION WIDTH 14.3 % (11.5-14.5); WHITE BLOOD COUNT 8.7 K/mm3 (4.8-10.8)
[2019-08-24 17:50] LABS: EOS % 5.2 % (0.0-4.0)
[2019-08-24 17:59] LABS: ALBUMIN 3.8 g/dL (3.5-5.0); POTASSIUM 3.4 mmol/L (3.5-5.1)
[2019-08-24 18:01] LABS: CALCIUM 9.9 mg/dL (8.3-10.5)
[2019-08-24 18:02] LABS: TOTAL PROTEIN 7.4 g/dL (6.4-8.3)
[2019-08-24 18:04] LABS: TOTAL BILIRUBIN 0.3 mg/dL (0.2-1.2)
[2019-08-24 18:42] VITALS: BP 140/78
== END 2019-08-24 18:42 | disposition home or self-care (01) ==
LOC: ED 16:47
PROVIDERS: Physician Assistant
DX: G89.18 Other acute postprocedural pain (principal); R10.9 Unspecified abdominal pain; I25.10 Atherosclerotic heart disease of native coronary artery without angina pectoris; E11.9 Type 2 diabetes mellitus without complications; I10 Essential (primary) hypertension; I25.2 Old myocardial infarction; F32.9 Major depressive disorder, single episode, unspecified; G20 Parkinson's disease; F17.210 Nicotine dependence, cigarettes, uncomplicated; Z79.01 Long term (current) use of anticoagulants; Z79.82 Long term (current) use of aspirin; Z95.0 Presence of cardiac pacemaker; Z88.6 Allergy status to analgesic agent
CPT/HCPCS: J1170

== ENCOUNTER 2019-08-29 14:49 | Emergency (ER) | payer MEDICAID ==
[~2019-08-29] VITALS: Ht 177.8 cm; Wt 94.5 kg
[2019-08-29 15:32] LABS: EOS # 0.3 (0.04-0.40); EOS % 3.6 % (0.0-4.0); HEMATOCRIT 46.9 % (42.0-52.0); HEMOGLOBIN 15.6 g/dL (13.5-18.0); LYMPH# 1.7 (1.50-4.00); MEAN CELL VOLUME 84 fl (78-100); MEAN CORPUSCULAR HEMOGLOBIN 28 pg (27-31); MEAN CORPUSCULAR HGB CONC 33 g/dL (33-37); MEAN PLATELET VOLUME 9.4 fl (7.4-10.4); MONO # 0.8 (0.20-0.80); NEU # 6.6 (1.40-6.50); PLATELET COUNT 343 K/mm3 (130-400); RED BLOOD COUNT 5.59 M/mm3 (4.20-5.60); WHITE BLOOD COUNT 9.5 K/mm3 (4.8-10.8)
[2019-08-29 15:34] LABS: ALBUMIN 4.1 g/dL (3.5-5.0); POTASSIUM 3.6 mmol/L (3.5-5.1)
[2019-08-29 15:35] LABS: CALCIUM 10.1 mg/dL (8.3-10.5)
[2019-08-29 15:36] LABS: PROTHROMBIN TIME 11.6 SECONDS (9.0-12.0)
[2019-08-29 15:37] LABS: TOTAL PROTEIN 8.5 g/dL (6.4-8.3)
[2019-08-29 15:39] LABS: TOTAL BILIRUBIN 0.4 mg/dL (0.2-1.2)
[2019-08-29 16:10] LABS: URINE APPEARANCE CLEAR; URINE BILIRUBIN NEGATIVE (NEGATIVE); URINE BLOOD TRACE (NEGATIVE); URINE COLOR YELLOW; URINE GLUCOSE NEGATIVE (NEGATIVE); URINE KETONE NEGATIVE (NEGATIVE); URINE LEUKOCYTE ESTERASE NEGATIVE (NEGATIVE); URINE NITRATE NEGATIVE (NEGATIVE); URINE PROTEIN(semi-quant) TRACE mg/dL (NEGATIVE); URINE UROBILINOGEN NORMAL (NORMAL)
[2019-08-29 17:50] VITALS: BP 124/74
[2019-08-29] MEDS ORDERED: FLOMAX0.4 MG PO (18:16)
== END 2019-08-29 19:06 | disposition home or self-care (01) ==
LOC: ED 14:49
PROVIDERS: Physician Assistant
DX: R33.9 Retention of urine, unspecified (principal); R10.9 Unspecified abdominal pain; G89.29 Other chronic pain; E11.9 Type 2 diabetes mellitus without complications; I25.10 Atherosclerotic heart disease of native coronary artery without angina pectoris; I25.2 Old myocardial infarction; I10 Essential (primary) hypertension; G20 Parkinson's disease; F32.9 Major depressive disorder, single episode, unspecified; F17.210 Nicotine dependence, cigarettes, uncomplicated; Z79.01 Long term (current) use of anticoagulants; Z79.82 Long term (current) use of aspirin; Z88.6 Allergy status to analgesic agent; Z88.8 Allergy status to other drugs, medicaments and biological substances; Z98.890 Other specified postprocedural states
CPT/HCPCS: J1170; J7030; Q9967

== ENCOUNTER → 2019-09-24 | Outpatient (CLI) | payer MEDICARE, MEDICAID ==
[2019-08-29 17:50] VITALS: BP 124/74
[~2019-09-24] MED LIST changes: +FLOMAX0.4 MG PO
[2019-09-24 15:05] LABS: BASO # 0.1 (0.02-0.10); EOS # 0.6 (0.04-0.40); HEMATOCRIT 45.5 % (42.0-52.0); HEMOGLOBIN 14.8 g/dL (13.5-18.0); LYMPH# 1.9 (1.50-4.00); MEAN CELL VOLUME 86 fl (78-100); MEAN CORPUSCULAR HEMOGLOBIN 28 pg (27-31); MEAN CORPUSCULAR HGB CONC 33 g/dL (33-37); MEAN PLATELET VOLUME 9.7 fl (7.4-10.4); MONO # 0.5 (0.20-0.80); NEU # 4.8 (1.40-6.50); PLATELET COUNT 233 K/mm3 (130-400); RED BLOOD COUNT 5.29 M/mm3 (4.20-5.60); RED CELL DISTRIBUTION WIDTH 14.6 % (11.5-14.5); WHITE BLOOD COUNT 7.7 K/mm3 (4.8-10.8)
[2019-09-24 15:21] LABS: EOS % 7.1 % (0.0-4.0)
[2019-09-24 15:30] LABS: ALBUMIN 4.3 g/dL (3.5-5.0); POTASSIUM 3.2 mmol/L (3.5-5.1)
[2019-09-24 15:32] LABS: CALCIUM 9.5 mg/dL (8.3-10.5)
[2019-09-24 15:33] LABS: TOTAL PROTEIN 8.3 g/dL (6.4-8.3)
[2019-09-24 15:35] LABS: TOTAL BILIRUBIN 0.4 mg/dL (0.2-1.2)
[2019-09-24 15:39] LABS: MAGNESIUM 1.63 mg/dL (1.60-2.60)
[2019-09-24 16:26] LABS: ERYTHROCYTE SEDIMENTATION RATE 10 mm/hr (0-20)
== END ==
LOC: LAB 14:44
PROVIDERS: Internal Medicine
DX: K52.9 Noninfective gastroenteritis and colitis, unspecified (principal); I10 Essential (primary) hypertension; E11.9 Type 2 diabetes mellitus without complications

== ENCOUNTER 2019-10-04 10:14 | Emergency (ER) | payer MEDICARE, MEDICAID ==
[~2019-10-04 10:14] MED LIST changes: -METOPROLOL SUC100 M1 PO; -SERTRALINE50 MG PO
[2019-10-04 10:26] VITALS: BP 199/103
[2019-10-04] MEDS ORDERED: SERTRALINE50 MG PO (15:50)
[2019-10-04] MEDS ORDERED: XARELTO20 MG PO (15:50)
[2019-10-04] MEDS ORDERED: METOPROLOL SUC100 M1 PO (15:50)
[2019-10-04] MEDS ORDERED: AMLODIPINE BESYL5 MG PO (15:50)
== END 2019-10-04 10:50 | disposition left against medical advice (07) ==
LOC: EDSTATUS 10:14 → ED 10:14
DX: L50.9 Urticaria, unspecified (principal); F41.9 Anxiety disorder, unspecified; Z79.82 Long term (current) use of aspirin

== ENCOUNTER 2019-10-04 15:39 | Emergency (ER) | payer MEDICARE, MEDICAID ==
[2019-10-04] MEDS ORDERED: METOPROLOL SUC100 M1 PO (15:50)
[2019-10-04] MEDS ORDERED: SERTRALINE50 MG PO (15:50)
[2019-10-04] MEDS ORDERED: XARELTO20 MG PO (15:50)
[2019-10-04] MEDS ORDERED: AMLODIPINE BESYL5 MG PO (15:50)
[2019-10-04 16:47] LABS: EOS # 0.4 (0.04-0.40); HEMATOCRIT 45.2 % (42.0-52.0); HEMOGLOBIN 15.1 g/dL (13.5-18.0); LYMPH# 1.5 (1.50-4.00); MEAN CELL VOLUME 85 fl (78-100); MEAN CORPUSCULAR HEMOGLOBIN 29 pg (27-31); MEAN CORPUSCULAR HGB CONC 33 g/dL (33-37); MEAN PLATELET VOLUME 9.8 fl (7.4-10.4); MONO # 0.5 (0.20-0.80); NEU # 4.1 (1.40-6.50); PLATELET COUNT 210 K/mm3 (130-400); RED CELL DISTRIBUTION WIDTH 14.6 % (11.5-14.5); WHITE BLOOD COUNT 6.5 K/mm3 (4.8-10.8)
[2019-10-04 16:49] LABS: EOS % 5.5 % (0.0-4.0)
[2019-10-04 16:52] LABS: ALBUMIN 3.9 g/dL (3.5-5.0); POTASSIUM 3.6 mmol/L (3.5-5.1)
[2019-10-04 16:53] LABS: CALCIUM 9.1 mg/dL (8.3-10.5)
[2019-10-04 16:55] LABS: TOTAL PROTEIN 7.6 g/dL (6.4-8.3)
[2019-10-04 16:56] LABS: TOTAL BILIRUBIN 0.5 mg/dL (0.2-1.2)
[2019-10-04 17:42] VITALS: BP 147/87
== END 2019-10-04 17:32 | disposition home or self-care (01) ==
LOC: ED 15:39
PROVIDERS: Nurse Practitioner Family
DX: K62.89 Other specified diseases of anus and rectum (principal); I10 Essential (primary) hypertension; E78.5 Hyperlipidemia, unspecified; G20 Parkinson's disease; Z79.82 Long term (current) use of aspirin; Z87.19 Personal history of other diseases of the digestive system; Z98.890 Other specified postprocedural states
CPT/HCPCS: J2270; J7512; Q9967

== ENCOUNTER → 2019-10-04 | Outpatient (CLI) | payer MEDICARE, MEDICAID ==
[~2019-10-04] MED LIST changes: +METOPROLOL SUC100 M1 PO; +SERTRALINE50 MG PO
== END ==
LOC: RAD 10:34
DX: M16.11 Unilateral primary osteoarthritis, right hip (principal)

== ENCOUNTER → 2020-02-19 | Outpatient (CLI) | payer MEDICARE, MEDICAID ==
[~2020-02-19] MED LIST changes: +METOPROLOL SUC100 M1 PO; +SERTRALINE50 MG PO
[2020-02-19 14:22] LABS: BASO # 0.1 (0.02-0.10); EOS # 0.4 (0.04-0.40); EOS % 4.7 % (0.0-4.0); HEMATOCRIT 45.5 % (42.0-52.0); HEMOGLOBIN 15.1 g/dL (13.5-18.0); LYMPH# 2.1 (1.50-4.00); MEAN CELL VOLUME 88 fl (78-100); MEAN CORPUSCULAR HEMOGLOBIN 29 pg (27-31); MEAN CORPUSCULAR HGB CONC 33 g/dL (33-37); MEAN PLATELET VOLUME 9.3 fl (7.4-10.4); MONO # 0.7 (0.20-0.80); NEU # 5.3 (1.40-6.50); PLATELET COUNT 238 K/mm3 (130-400); RED BLOOD COUNT 5.17 M/mm3 (4.20-5.60); RED CELL DISTRIBUTION WIDTH 13.8 % (11.5-14.5); WHITE BLOOD COUNT 8.6 K/mm3 (4.8-10.8)
[2020-02-19 14:30] LABS: CALCIUM 9.5 mg/dL (8.3-10.5)
[2020-02-19 14:31] LABS: TOTAL PROTEIN 8.1 g/dL (6.4-8.3)
[2020-02-19 14:33] LABS: TOTAL BILIRUBIN 0.3 mg/dL (0.2-1.2)
[2020-02-19 14:34] LABS: URINE APPEARANCE CLEAR; URINE BILIRUBIN NEGATIVE (NEGATIVE); URINE BLOOD NEGATIVE (NEGATIVE); URINE COLOR YELLOW; URINE KETONE NEGATIVE (NEGATIVE); URINE LEUKOCYTE ESTERASE NEGATIVE (NEGATIVE); URINE MUCUS PRESENT (NOT PRESENT); URINE NITRATE NEGATIVE (NEGATIVE); URINE PROTEIN(semi-quant) NEGATIVE (NEGATIVE); URINE UROBILINOGEN NORMAL (NORMAL); URINE WBC 0-1 /hpf (0-3)
[2020-02-19 14:38] LABS: MAGNESIUM 1.65 mg/dL (1.60-2.60)
[2020-02-19 16:13] LABS: ERYTHROCYTE SEDIMENTATION RATE 18 mm/hr (0-20)
[2020-02-19 21:44] LABS: TESTOSTERONE 287 ng/dL (221-716)
== END ==
LOC: LAB 14:01
PROVIDERS: Internal Medicine
DX: Z12.5 Encounter for screening for malignant neoplasm of prostate (principal); Z12.11 Encounter for screening for malignant neoplasm of colon; E11.9 Type 2 diabetes mellitus without complications; I25.10 Atherosclerotic heart disease of native coronary artery without angina pectoris

== ENCOUNTER 2020-05-08 15:16 | Emergency (ER) | payer MEDICARE, MEDICAID ==
[~2020-05-08] VITALS: Ht 177.8 cm; Wt 99.1 kg
[2020-05-08 16:19] LABS: HEMATOCRIT 40.9 % (42.0-52.0); HEMOGLOBIN 13.4 g/dL (13.5-18.0); MEAN CELL VOLUME 89 fl (78-100); MEAN CORPUSCULAR HEMOGLOBIN 29 pg (27-31); MEAN CORPUSCULAR HGB CONC 33 g/dL (33-37); MEAN PLATELET VOLUME 9.4 fl (7.4-10.4); PLATELET COUNT 213 K/mm3 (130-400); RED BLOOD COUNT 4.58 M/mm3 (4.20-5.60); RED CELL DISTRIBUTION WIDTH 14.5 % (11.5-14.5); WHITE BLOOD COUNT 6.2 K/mm3 (4.8-10.8)
[2020-05-08 16:23] LABS: ALBUMIN 3.8 g/dL (3.5-5.0); POTASSIUM 3.7 mmol/L (3.5-5.1)
[2020-05-08 16:24] LABS: CALCIUM 8.9 mg/dL (8.3-10.5)
[2020-05-08 16:25] LABS: LYMPHOCYTE 23 % (20-51); MONOCYTE 8 % (3-10); NEUTROPHILS 58 % (42-75); TOTAL PROTEIN 7.8 g/dL (6.4-8.3)
[2020-05-08 16:27] LABS: TOTAL BILIRUBIN 0.2 mg/dL (0.2-1.2)
[2020-05-08 17:31] LABS: URINE APPEARANCE CLEAR; URINE BILIRUBIN NEGATIVE (NEGATIVE); URINE COLOR YELLOW; URINE KETONE NEGATIVE (NEGATIVE); URINE PROTEIN(semi-quant) TRACE mg/dL (NEGATIVE); URINE UROBILINOGEN NORMAL (NORMAL)
[2020-05-08 17:32] LABS: URINE BLOOD NEGATIVE (NEGATIVE); URINE LEUKOCYTE ESTERASE NEGATIVE (NEGATIVE); URINE NITRATE NEGATIVE (NEGATIVE)
[2020-05-08 19:20] VITALS: BP 145/65
== END 2020-05-08 19:20 | disposition home or self-care (01) ==
LOC: ED 15:16
PROVIDERS: Nurse Practitioner Family
DX: K52.9 Noninfective gastroenteritis and colitis, unspecified (principal); I48.91 Unspecified atrial fibrillation; I11.0 Hypertensive heart disease with heart failure; E11.9 Type 2 diabetes mellitus without complications; I25.10 Atherosclerotic heart disease of native coronary artery without angina pectoris; F31.9 Bipolar disorder, unspecified; F43.10 Post-traumatic stress disorder, unspecified; G20 Parkinson's disease; Z79.01 Long term (current) use of anticoagulants; Z95.9 Presence of cardiac and vascular implant and graft, unspecified; Z90.49 Acquired absence of other specified parts of digestive tract; Z86.718 Personal history of other venous thrombosis and embolism; Z79.82 Long term (current) use of aspirin
CPT/HCPCS: J2270; J2405; J7030

== ENCOUNTER 2020-05-16 15:20 | Emergency (ER) | payer MEDICARE, MEDICAID ==
[~2020-05-16] VITALS: Ht 177.8 cm; Wt 100.0 kg
[2020-05-16 16:02] LABS: BASO # 0.1 (0.02-0.10); EOS # 0.4 (0.04-0.40); HEMATOCRIT 43.1 % (42.0-52.0); HEMOGLOBIN 14.3 g/dL (13.5-18.0); MEAN CELL VOLUME 88 fl (78-100); MEAN CORPUSCULAR HEMOGLOBIN 29 pg (27-31); MEAN CORPUSCULAR HGB CONC 33 g/dL (33-37); MEAN PLATELET VOLUME 9.4 fl (7.4-10.4); MONO # 0.7 (0.20-0.80); NEU # 4.7 (1.40-6.50); PLATELET COUNT 242 K/mm3 (130-400); RED BLOOD COUNT 4.91 M/mm3 (4.20-5.60); RED CELL DISTRIBUTION WIDTH 14.9 % (11.5-14.5); WHITE BLOOD COUNT 7.9 K/mm3 (4.8-10.8)
[2020-05-16 16:03] LABS: EOS % 5.4 % (0.0-4.0)
[2020-05-16 16:04] LABS: ALBUMIN 3.9 g/dL (3.5-5.0); POTASSIUM 3.4 mmol/L (3.5-5.1)
[2020-05-16 16:05] LABS: CALCIUM 9.3 mg/dL (8.3-10.5)
[2020-05-16 16:06] LABS: TOTAL PROTEIN 7.9 g/dL (6.4-8.3)
[2020-05-16 16:08] LABS: TOTAL BILIRUBIN 0.4 mg/dL (0.2-1.2)
[2020-05-16 17:22] LABS: URINE APPEARANCE CLEAR; URINE BILIRUBIN NEGATIVE (NEGATIVE); URINE BLOOD NEGATIVE (NEGATIVE); URINE COLOR AMBER; URINE GLUCOSE 50 mg/dL mg/dL (NEGATIVE); URINE KETONE NEGATIVE (NEGATIVE); URINE LEUKOCYTE ESTERASE NEGATIVE (NEGATIVE); URINE NITRATE NEGATIVE (NEGATIVE); URINE PROTEIN(semi-quant) 1+ mg/dL (NEGATIVE); URINE UROBILINOGEN NORMAL (NORMAL); URINE WBC 0-1 /hpf (0-3)
[2020-05-16] MEDS ORDERED: CYCLOBENZAPRINE10 M1 PO (18:36)
[2020-05-16 18:40] VITALS: BP 187/104
== END 2020-05-16 18:52 | disposition home or self-care (01) ==
LOC: ED 15:20
PROVIDERS: Nurse Practitioner Primary Care
DX: R25.2 Cramp and spasm (principal); M54.2 Cervicalgia; I10 Essential (primary) hypertension; G89.29 Other chronic pain; F32.9 Major depressive disorder, single episode, unspecified; Z95.9 Presence of cardiac and vascular implant and graft, unspecified; Z88.5 Allergy status to narcotic agent; Z90.49 Acquired absence of other specified parts of digestive tract; Z86.73 Personal history of transient ischemic attack (TIA), and cerebral infarction without residual deficits; Z79.82 Long term (current) use of aspirin; Z79.01 Long term (current) use of anticoagulants
CPT/HCPCS: J2270

== ENCOUNTER 2020-05-26 04:25 | Emergency (ER) | payer MEDICARE, MEDICAID ==
[~2020-05-26] VITALS: Ht 177.8 cm; Wt 100.0 kg
[~2020-05-26 04:25] MED LIST changes: +CYCLOBENZAPRINE10 M1 PO
[2020-05-26] MEDS ORDERED: PERCOCET 325 MG1 TA2 PO (04:42)
[2020-05-26] MEDS ORDERED: PROTONIX TR40 M1 PO (04:43)
[2020-05-26 07:23] VITALS: BP 186/98
== END 2020-05-26 07:23 | disposition home or self-care (01) ==
LOC: ED 04:25
DX: R10.31 Right lower quadrant pain (principal); I10 Essential (primary) hypertension; E11.9 Type 2 diabetes mellitus without complications; G20 Parkinson's disease; F17.210 Nicotine dependence, cigarettes, uncomplicated; Z95.9 Presence of cardiac and vascular implant and graft, unspecified; Z79.01 Long term (current) use of anticoagulants; Z79.82 Long term (current) use of aspirin
CPT/HCPCS: J2270; Q9967

== ENCOUNTER → 2020-06-09 | Outpatient (CLI) | payer MEDICARE, MEDICAID ==
[2020-05-26 07:23] VITALS: BP 186/98
[~2020-06-09] MED LIST changes: +PROTONIX TR40 M1 PO
[2020-06-11 13:32] LABS: CALPROTECTIN 24 mg/kg (0-49)
== END ==
LOC: LAB 11:49
PROVIDERS: Internal Medicine Gastroenterology
DX: K21.0 Gastro-esophageal reflux disease with esophagitis (principal); K56.699 Other intestinal obstruction unspecified as to partial versus complete obstruction; K57.92 Diverticulitis of intestine, part unspecified, without perforation or abscess without bleeding; K57.90 Diverticulosis of intestine, part unspecified, without perforation or abscess without bleeding; K92.1 Melena; K29.70 Gastritis, unspecified, without bleeding; K63.5 Polyp of colon; R13.10 Dysphagia, unspecified; R93.3 Abnormal findings on diagnostic imaging of other parts of digestive tract

== ENCOUNTER → 2020-06-10 | Outpatient (CLI) | payer MEDICARE, MEDICAID ==
[2020-05-26 07:23] VITALS: BP 186/98
== END ==
LOC: LAB 13:51
PROVIDERS: Internal Medicine
DX: K57.92 Diverticulitis of intestine, part unspecified, without perforation or abscess without bleeding (principal); K56.699 Other intestinal obstruction unspecified as to partial versus complete obstruction; K92.1 Melena; K29.70 Gastritis, unspecified, without bleeding; R93.3 Abnormal findings on diagnostic imaging of other parts of digestive tract; R19.7 Diarrhea, unspecified

== ENCOUNTER → 2020-06-11 | Outpatient (CLI) | payer MEDICARE, MEDICAID ==
[2020-05-26 07:23] VITALS: BP 186/98
== END ==
LOC: RAD 08:43
DX: K57.32 Diverticulitis of large intestine without perforation or abscess without bleeding (principal); K76.0 Fatty (change of) liver, not elsewhere classified; K56.699 Other intestinal obstruction unspecified as to partial versus complete obstruction; K92.1 Melena; K29.70 Gastritis, unspecified, without bleeding; R19.7 Diarrhea, unspecified
CPT/HCPCS: Q9967

== ENCOUNTER → 2020-06-12 | Day surgery (SDC) | payer MEDICARE, MEDICAID ==
[2020-05-26 07:23] VITALS: BP 186/98
== END ==
LOC: MSO 08:30
DX: K22.0 Achalasia of cardia (principal); E78.00 Pure hypercholesterolemia, unspecified; I10 Essential (primary) hypertension; K21.0 Gastro-esophageal reflux disease with esophagitis; K92.1 Melena; E66.9 Obesity, unspecified; Z90.49 Acquired absence of other specified parts of digestive tract; Z87.891 Personal history of nicotine dependence; Z79.01 Long term (current) use of anticoagulants; Z79.82 Long term (current) use of aspirin
CPT/HCPCS: 00731; J0585; J2704; J3010; J7030

== ENCOUNTER → 2020-06-13 | Emergency (ER) | payer MEDICARE, MEDICAID ==
[~2020-06-13] VITALS: Ht 177.8 cm; Wt 100.0 kg
[2020-06-13 14:40] VITALS: BP 164/95
== END ==
LOC: ED 14:33
DX: R10.11 Right upper quadrant pain (principal); F17.200 Nicotine dependence, unspecified, uncomplicated; F41.9 Anxiety disorder, unspecified; F32.9 Major depressive disorder, single episode, unspecified; I25.2 Old myocardial infarction; I25.10 Atherosclerotic heart disease of native coronary artery without angina pectoris; Z86.73 Personal history of transient ischemic attack (TIA), and cerebral infarction without residual deficits; Z95.5 Presence of coronary angioplasty implant and graft; Z95.1 Presence of aortocoronary bypass graft; Z79.82 Long term (current) use of aspirin; Z79.01 Long term (current) use of anticoagulants

== ENCOUNTER → 2020-07-24 | Outpatient (CLI) | payer MEDICARE, MEDICAID ==
[2020-06-13 14:40] VITALS: BP 164/95
== END ==
LOC: LAB 08:30
DX: J02.9 Acute pharyngitis, unspecified (principal); M79.10 Myalgia, unspecified site; R09.81 Nasal congestion; R53.83 Other fatigue; R19.7 Diarrhea, unspecified; R43.8 Other disturbances of smell and taste; Z20.828 Contact with and (suspected) exposure to other viral communicable diseases

== ENCOUNTER → 2020-07-29 | Outpatient (CLI) | payer MEDICARE, MEDICAID ==
[2020-06-13 14:40] VITALS: BP 164/95
[2020-07-29 09:49] LABS: EOS # 0.2 (0.04-0.40); EOS % 3.6 % (0.0-4.0); HEMATOCRIT 50.2 % (42.0-52.0); HEMOGLOBIN 16.3 g/dL (13.5-18.0); LYMPH# 1.6 (1.50-4.00); MEAN CELL VOLUME 88 fl (78-100); MEAN CORPUSCULAR HEMOGLOBIN 29 pg (27-31); MEAN CORPUSCULAR HGB CONC 33 g/dL (33-37); MEAN PLATELET VOLUME 9.6 fl (7.4-10.4); MONO # 0.4 (0.20-0.80); NEU # 3.9 (1.40-6.50); PLATELET COUNT 210 K/mm3 (130-400); RED BLOOD COUNT 5.71 M/mm3 (4.20-5.60); RED CELL DISTRIBUTION WIDTH 13.7 % (11.5-14.5); WHITE BLOOD COUNT 6.2 K/mm3 (4.8-10.8)
[2020-07-29 09:57] LABS: POTASSIUM 4.1 mmol/L (3.5-5.1)
[2020-07-29 09:58] LABS: ALBUMIN 4.1 g/dL (3.4-4.8)
[2020-07-29 09:59] LABS: CALCIUM 9.5 mg/dL (8.3-10.5)
[2020-07-29 10:00] LABS: TOTAL PROTEIN 7.7 g/dL (6.2-8.1)
[2020-07-29 10:02] LABS: TOTAL BILIRUBIN 0.4 mg/dL (0.2-1.2)
[2020-07-29 10:53] LABS: ERYTHROCYTE SEDIMENTATION RATE 3 mm/hr (0-20)
== END ==
LOC: LAB 09:33
PROVIDERS: Internal Medicine
DX: I48.91 Unspecified atrial fibrillation (principal); E11.9 Type 2 diabetes mellitus without complications; I25.10 Atherosclerotic heart disease of native coronary artery without angina pectoris

== ENCOUNTER → 2020-08-08 | Outpatient (CLI) | payer MEDICARE, MEDICAID ==
[2020-06-13 14:40] VITALS: BP 164/95
== END ==
LOC: LAB 10:27
DX: M79.10 Myalgia, unspecified site (principal); R51.9 Headache, unspecified; Z20.828 Contact with and (suspected) exposure to other viral communicable diseases

== ENCOUNTER → 2020-10-31 | Outpatient (CLI) | payer MEDICARE, MEDICAID ==
[2020-06-13 14:40] VITALS: BP 164/95
== END ==
LOC: CARDREHAB 10:26
DX: G47.19 Other hypersomnia (principal)
CPT/HCPCS: G0399

== ENCOUNTER 2021-01-08 16:23 | Emergency (ER) | payer MEDICARE, MEDICAID ==
[2021-01-08 16:43] LABS: BASO # 0.1 (0.02-0.10); EOS # 0.6 (0.04-0.40); HEMATOCRIT 48.5 % (42.0-52.0); HEMOGLOBIN 14.9 g/dL (13.5-18.0); LYMPH# 1.7 (1.50-4.00); MEAN CELL VOLUME 90 fl (78-100); MEAN CORPUSCULAR HEMOGLOBIN 28 pg (27-31); MEAN CORPUSCULAR HGB CONC 31 g/dL (33-37); MEAN PLATELET VOLUME 9.7 fl (7.4-10.4); MONO # 0.7 (0.20-0.80); NEU # 6.6 (1.40-6.50); PLATELET COUNT 224 K/mm3 (130-400); RED BLOOD COUNT 5.41 M/mm3 (4.20-5.60); WHITE BLOOD COUNT 9.7 K/mm3 (4.8-10.8)
[2021-01-08 16:49] LABS: EOS % 6.2 % (0.0-4.0)
[2021-01-08 16:59] LABS: ALBUMIN 4.2 g/dL (3.4-4.8); POTASSIUM 4.2 mmol/L (3.5-5.1); SODIUM 141 mmol/L (136-145)
[2021-01-08 17:01] LABS: CALCIUM 8.8 mg/dL (8.3-10.5)
[2021-01-08 17:02] LABS: GLUCOSE 110 mg/dL (75-110); TOTAL PROTEIN 8.1 g/dL (6.2-8.1)
[2021-01-08 17:03] LABS: CARBON DIOXIDE 27 mmol/L (23-31)
[2021-01-08 17:04] LABS: TOTAL BILIRUBIN 0.6 mg/dL (0.2-1.2)
[2021-01-08 17:07] LABS: AST-SGOT 17 U/L (5-34)
[2021-01-08 17:09] LABS: ACETAMINOPHEN 10 ug/mL; ALT/SGPT 18 U/L (0-55)
[2021-01-08 17:15] LABS: ALCOHOL IN-HOUSE < 10 mg/dL (<10)
[2021-01-08] MEDS ORDERED: PERCOCET 325 MG1 TAB PO (18:18)
[2021-01-08] MEDS ORDERED: NARCAN4 MG NS (18:21)
[2021-01-08] MEDS ORDERED: FENOFIBRATE145 MG PO (18:22)
[2021-01-08] MEDS ORDERED: VENLAFAXINE HCL75 M3 PO (18:22)
[2021-01-08] MEDS ORDERED: RANOLAZINE ER500 MG PO (18:23)
[2021-01-08] MEDS ORDERED: PROAIR HFA0.09 MG/AC IH (18:24)
[2021-01-08] MEDS ORDERED: VALIUM 5MG T5 MG/TAB PO (18:25)
[2021-01-08] MEDS ORDERED: TOPROL XL100 MG PO (18:25)
[2021-01-08] MEDS ORDERED: FLUTICASON0.05 MG/AC NS (18:26)
[2021-01-08] MEDS ORDERED: LISINOPRIL10 MG PO (18:27)
[2021-01-08] MEDS ORDERED: IMODIUM 2MG CAPS2 MG PO (18:31)
[2021-01-09 08:20] VITALS: BP 159/96
== END 2021-01-09 11:45 | disposition home or self-care (01) ==
LOC: ED 16:23
PROVIDERS: Nurse Practitioner Family
DX: T39.1X2A Poisoning by 4-Aminophenol derivatives, intentional self-harm, initial encounter (principal); I10 Essential (primary) hypertension; I25.10 Atherosclerotic heart disease of native coronary artery without angina pectoris; I25.2 Old myocardial infarction; K21.9 Gastro-esophageal reflux disease without esophagitis; F32.9 Major depressive disorder, single episode, unspecified; G20 Parkinson's disease; F17.210 Nicotine dependence, cigarettes, uncomplicated; Z95.0 Presence of cardiac pacemaker; Z79.01 Long term (current) use of anticoagulants
CPT/HCPCS: J2550; J7030

== ENCOUNTER → 2021-03-30 | Outpatient (CLI) | payer MEDICARE, MEDICAID ==
[~2021-03-30] MED LIST changes: +FLUTICASON0.05 MG/AC NS; +IMODIUM 2MG CAPS2 MG PO; +LISINOPRIL10 MG PO; +NARCAN4 MG NS; +PROAIR HFA0.09 MG/AC IH; +VALIUM 5MG T5 MG/TAB PO; +VENLAFAXINE HCL75 M3 PO
[2021-03-30 11:21] LABS: BASO # 0.04 (0.02-0.10); EOS # 0.56 (0.04-0.40); EOS % 4.4 % (0.0-4.0); HEMATOCRIT 42.4 % (42.0-52.0); HEMOGLOBIN 13.6 g/dL (13.5-18.0); LYMPH# 1.56 (1.50-4.00); MEAN CELL VOLUME 89 fl (78-100); MEAN CORPUSCULAR HEMOGLOBIN 29 pg (27-31); MEAN CORPUSCULAR HGB CONC 32 g/dL (33-37); MEAN PLATELET VOLUME 8.8 fl (7.4-10.4); MONO # 0.96 (0.20-0.80); NEU # 9.59 (1.40-6.50); PLATELET COUNT 413 K/mm3 (130-400); RED BLOOD COUNT 4.76 M/mm3 (4.20-5.60); RED CELL DISTRIBUTION WIDTH 14.3 % (11.5-14.5); WHITE BLOOD COUNT 12.8 K/mm3 (4.8-10.8)
[2021-03-30 11:24] LABS: POTASSIUM 3.8 mmol/L (3.5-5.1)
[2021-03-30 11:25] LABS: CALCIUM 9.3 mg/dL (8.3-10.5)
[2021-03-30 12:19] LABS: URINE APPEARANCE CLEAR; URINE BILIRUBIN NEGATIVE (NEGATIVE); URINE BLOOD NEGATIVE (NEGATIVE); URINE COLOR YELLOW; URINE GLUCOSE NEGATIVE (NEGATIVE); URINE KETONE NEGATIVE (NEGATIVE); URINE LEUKOCYTE ESTERASE NEGATIVE (NEGATIVE); URINE MUCUS PRESENT (NOT PRESENT); URINE NITRATE NEGATIVE (NEGATIVE); URINE PROTEIN(semi-quant) NEGATIVE (NEGATIVE); URINE UROBILINOGEN NORMAL (NORMAL)
== END ==
LOC: LAB 10:27
PROVIDERS: Family Medicine
DX: R04.2 Hemoptysis (principal); R91.1 Solitary pulmonary nodule